=== PATIENT | male | born 1985 | race Hispanic/Latino ===

== ENCOUNTER 2022-05-20 09:54 | Emergency (ER) | payer SELFPAY ==
[2022-05-20] MEDS ORDERED: Ketorolac Tromethamine 30 MG/ML VIAL ONE (10:43)
== END 2022-05-20 10:57 | disposition home or self-care (01) ==
LOC: ERS 09:54
DX: J02.9 Acute pharyngitis, unspecified (principal)
CPT/HCPCS: 96372; 99282; J1885